=== PATIENT | female | born 2000 | race Caucasian/White ===

== ENCOUNTER 2025-04-11 09:00 | Outpatient (RCR) | payer BC, SELFPAY ==
--- NOTE | 2025-02-14 14:11 | OPREHPOC ---
Outpatient Therapy Plan of Care This is a Multidisciplinary Plan of Care that may contain components documented by all disciplines (PT, OT, and ST.) ST Problem 1 ST Problem #[address] Goal 1 Goal / Goal Update The patient will participate in home programming to improve carry over/generalization of skills to the home environment Target Visit [address] Problem #[address] Goal 1 Goal / Goal Update Voice: 1. The patient will learn techniques to improve vocal hygiene and eliminate/reduce vocal behaviors that may impact voicing. 2. The patient will be provided a written HEP with neck and shoulder exercises to increase muscle awareness and relaxation of laryngeal tension. 3. The patient will learn diaphragmatic breathing techniques and methods of easy airflow release during speech 80% minimal cues. 4. The patient will engage in exercises to increase coordination/control of respiration and phonation 80% minimal cues. 5. The patient will improve self-monitoring of vocal quality, onset of phonation, volume/loudness , and laryngeal tension during conversational voice use 80% minimal cues Target Visit 10
--- NOTE | 2025-02-14 14:11 | STOPEVAL1 ---
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 She was noted to have a normal TVC mobility with a slight glottic gap. 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 She does not take medication for reflux and has been taking zyrtec for approximately 1 week for sinus drainage without noted improvement or change. She does state she notices some difficulty breathing and tightness and pain in her throat since the onset. Reported Pain Level Pain Score 0: Self Report Assessment ST Clinical Summary The patient is a 34 year old female referred for an outpatient speech therapy evaluation and treatment following an office visit with her ENT. She was noted to have a normal TVC mobility with a slight glottic gap. 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 She does not take medication for reflux and has been taking Zyrtec for approximately 1 week for sinus drainage without noted improvement or change. She does state she notices some difficulty breathing and tightness and pain in her throat since the onset. The patient was administered the JANET Voice Evaluation and Hygiene Assessment. Results were as follows: Hygiene: The patient consumes approximately 1-2 cups of coffee a day, and significant/adequate glasses of water per day, currently utilizing Zyrtec (x1 week) for allergies and sinus drainage. She does preform two occupations that normally require significant speech and vocal use which can contribute to strain. However, she has been applying vocal rest for 3 weeks. Results of the Voice Evaluation: Respiration: Equal MPT (Maximum Phonation Time) for voiced and voiceless s/z 40/38 second ratio respectively. Sustained /a/ produced for 25 seconds and /e/ produced for 30 seconds respectively with good breath support noted for simple exchanges. Some loss or respiration support with prolonged counting. Able to count to 30 on one breath. Phonation: The patient demonstrates a harsh/ strained vocal quality with prolonged or extensive vocalization/speech production. She has initiated some easy onset of voice/speech independently. Pitch: Optimal level of 200 hertz with counting, phrases, and sentences. Voiced /ah/ for 25 seconds with 1 pitch break, voiced /e/ for 30 seconds with no pitch breaks noted via voice meter in close proximity. Lowest pitch achieved 175 Hertz. Speaking fundamental frequency of 200 Hertz . Highest pitch achieved 300 Hertz Loudness: Able to produce a 25 second sustained voicing for /ah and a 30 second sustained voicing for /e/ at 60-65 decibels. Passage and conversation speech produced at 60 decibels in close proximity as measured by a voice meter. Results and recommendations were reviewed with the patient as well as a HEP provided to initiate. Recommend speech therapy services 1x a week x 10 visits to address laryngeal tension, vocal hygiene ,self-monitoring of vocal quality, and respiration/phonation control and coordination. Plan of Care Interventions Treatment of Voice ST Services Indicated Yes Treatment Frequency and 1x a week x 10 visits. Duration These treatments will address the objective and functional deficits as defined above. The patient will be advanced safely and appropriately in order for the patient to progress towards his/her prior level of function. Additional exercises will be introduced and as well as a comprehensive home exercise program upon discharge, if needed, ?to ensure carryover of functional gains achieved in the clinic. This treatment plan has been reviewed and agreement upon by the patient.
--- NOTE | 2025-03-28 08:42 | PCSTNOTE ---
Patient called & cancelled scheduled appointment this date due to weather conditions
--- NOTE | 2025-04-11 09:26 | STOPDC ---
Assessment and note entered by Nohemy Davis LAMINATING PRESS OPERATOR Evaluation Information Assessment Status Discharge Reported Pain Level Pain Score 0: Self Report Assessment ST Clinical Summary The patient is a 34 year old female referred for an outpatient speech therapy evaluation and treatment following an office visit with her ENT. She was noted to have a normal TVC mobility with a slight glottic gap. 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 She does not take medication for reflux and has been taking Zyrtec for approximately 1 week for sinus drainage without noted improvement or change. She does state she notices some difficulty breathing and tightness and pain in her throat since the onset. The patient was administered the JANET Voice Evaluation and Hygiene Assessment. Results were as follows: Hygiene: The patient consumes approximately 1-2 cups of coffee a day, and significant/adequate glasses of water per day, currently utilizing Zyrtec (x1 week) for allergies and sinus drainage. She does preform to occupations that normally require significant speech and vocal use which can contribute to strain. However, she has bee applying vocal rest for 3 weeks. Results of the Voice Evaluation: Respiration: Equal MPT (Maximum Phonation Time) for voiced and voiceless s/z 40/38 second ratio respectively. Sustained /a/ produced for 25 seconds and /e/ produced for 30 seconds respectively with good breath support noted for simple exchanges. Some loss or respiration support with prolonged counting. Able to count to 30 on one breath. Phonation: The patient demonstrates a harsh/ strained vocal quality with prolonged or extensive vocalization/speech production. She has initiated some easy onset of voice/speech independently. Pitch: Optimal level of 200 hertz with counting, phrases, and sentences. Voiced /ah/ for 25 seconds with 1 pitch break, voiced /e/ for 30 seconds with no pitch breaks noted via voice meter in close proximity. Lowest pitch achieved 175 Hertz. Speaking fundamental frequency of 200 Hertz . Highest pitch achieved 300 Hertz Loudness: Able to produce a 25 second sustained voicing for /ah and a 30 second sustained voicing for /e/ at 60-65 decibels. Passage and conversation speech produced at 60 decibels in close proximity as measured by a voice meter. Results and recommendations were reviewed with the patient as well as a HEP provided to initiate. Recommend speech therapy services 1x a week x 10 visits to address laryngeal tension, vocal hygiene , self-monitoring of vocal quality, and respiration/phonation control and coordination. Update 04/11/25: Discharge Speech Services: Patient has been using home program and states feels it has helped as long as she disciplines herself to complete. Provided with HEP to continue at discharge. Plan of Care ST Services Indicated No
== END 2025-04-11 10:57 | disposition home or self-care (01) ==
LOC: ANHST 09:00
PROVIDERS: PCP Otolaryngology; Visit Provider Otolaryngology
DX: F44.4 Conversion disorder with motor symptom or deficit (principal)
CPT/HCPCS: 92507; 92524